=== PATIENT | male | born 1980 | race Caucasian/White ===

== ENCOUNTER 2020-11-27 15:01 | Emergency (ER) | payer SELFPAY ==
[~2020-11-27] VITALS: Ht 175.3 cm; Wt 86.7 kg
[2020-11-27 17:12] VITALS: BP 138/83
== END 2020-11-27 17:16 | disposition home or self-care (01) ==
LOC: M ED 15:01
DX: G56.32 Lesion of radial nerve, left upper limb (principal); F17.200 Nicotine dependence, unspecified, uncomplicated